=== PATIENT | male | born 1985 | race Caucasian/White ===

== ENCOUNTER 2022-12-07 08:28 | Emergency (ER) | payer OTHER ==
[2022-12-07 08:44] VITALS: TEMP 97.7
[2022-12-07 09:17] LABS: Appearance Clear (Clear); Bacteria None Seen /HPF (None Seen); Bilirubin Negative (Negative); Blood Negative (Negative); Epithelial Cells None Seen /HPF (None Seen); Glucose, Urine Negative (Negative); Hyaline Casts NONE SEEN /LPF (0-2); Ketones Negative (Negative); Leukocyte Esterase Negative (Negative); Nitrite Negative (Negative); Protein,Urine Dip Negative (Negative); RBC 0-2 /HPF (0-5); Urobilinogen 0.2 mg/dL (0.2); WBC 0-2 /HPF (0-5)
[2022-12-07 09:20] LABS: ADD URINE CULTURE? NO (NO)
--- NOTE | 2022-12-07 09:48 | ERPHSYRPT ---
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 Physician History: 37 yo WM w hematuria/L flank pain/epigastric pain x 1 hour. Pain is 7/10, sharp, and nothing makes it better or worse. He has had nausea but denies dysuria/vomiting/fever/diarrhea/melena/hematochezia/chest pain/dyspnea. Pt has a h/o kidney stones/smokes less than 1ppd/drinks 2 beers a day. Timing/Duration: other (1 hour) Quality: sharpness Abdominal Pain Onset Location: epigastric, flank (L flank) Pain Radiation: no radiation Severity of Pain-Max: moderate Severity of Pain-Current: moderate Modifying Factors: Improves With: nothing Associated Symptoms: back, nausea Allergies/Adverse Reactions: Penicillins Allergy (Verified 12/07/22 08:42) Hx Tetanus, Diphtheria Vaccination/Date Given: (unk) Hx Influenza Vaccination/Date Given: No Hx Pneumococcal Vaccination/Date Given: No Immunizations Up to Date: No Travel Risk - International Travel Have you traveled outside of the country in past 3 weeks: No - Coronavirus Screening Are you exhibiting any of the following symptoms?: No Close contact with a COVID-19 positive Pt in past 14-21 Days: No - Vaccine Status Have you recieved a Covid-19 vaccination: No - Review of Systems Constitutional: No Symptoms Eyes: No Symptoms Ears, Nose, & Throat: No Symptoms Respiratory: No Symptoms, Cough Cardiac: No Symptoms Abdominal/Gastrointestinal: No Symptoms, Abdominal Pain, Nausea Genitourinary Symptoms: No Symptoms, Hematuria, Flank Pain Musculoskeletal: No Symptoms Skin: No Symptoms Neurological: No Symptoms Psychological: No Symptoms Endocrine: No Symptoms Hematologic/Lymphatic: No Symptoms Immunological/Allergic: No Symptoms - Past Medical History Pertinent Past Medical History: Yes Cardiac History: Hypertension - Past Surgical History Past Surgical History: Yes - Social History Smoking Status: Current every day smoker Drug Use: marijuana Patient Lives Alone: No - Nursing Vital Signs Nursing Vital Signs: Initial Vital Signs Temperature 97.7 F 12/07/22 08:33 Pulse Rate 75 12/07/22 08:33 Respiratory Rate 16 12/07/22 08:33 Blood Pressure 146/93 12/07/22 08:33 O2 Sat by Pulse Oximetry 98 12/07/22 08:33 Pain Scale Pain Intensity 5 Hypertensive - Physical Exam General Appearance: no apparent distress Eye Exam: PERRL/EOMI, eyes nml inspection Ears, Nose, Throat Exam: normal ENT inspection, TMs normal, pharynx normal, moist mucous membranes Neck Exam: normal inspection, non-tender, supple, full range of motion, No meningismus, No mass, No Brudzinski, No Kernig's Respiratory Exam: normal breath sounds, lungs clear, airway intact, No respiratory distress Cardiovascular Exam: regular rate/rhythm, normal heart sounds, normal peripheral pulses, capillary refill <2 sec, No murmur Gastrointestinal/Abdomen Exam: soft, normal bowel sounds, tenderness (Moderate epigastric TTP wo guarding or rebound), No distention, No guarding Back Exam: normal inspection, normal range of motion, No CVA tenderness, No vertebral tenderness Extremity Exam: normal inspection, normal range of motion Neurologic Exam: alert, oriented x 3, cooperative, 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, normal mood/affect, nml cerebellar function, nml station & gait, sensation nml, No motor deficits, No sensory deficit Skin Exam: normal color, warm, dry, No rash Lymphatic Exam: No adenopathy SpO2 Interpretation: normal SpO2: 98 O2 Delivery: Room Air - Course Nursing assessment & vital signs reviewed: Yes - CT Exams Abdomen/Pelvis CT Interpretation: Tele-radiologist Report (Diffuse bladder wall thickening/cystitis) Ordered Tests: Active Orders 24 hr Category Date Time Status ABDOMEN AND PELVIS W/0 CONTRAS [CT] Stat Exams 12/07/22 08:37 Completed AMYLASE Stat Lab 12/07/22 09:43 Completed CBC W DIFF Stat Lab 12/07/22 09:43 Completed CMP Stat Lab 12/07/22 09:43 Completed LIPASE Stat Lab 12/07/22 09:43 Completed PROTIME WITH INR Stat Lab 12/07/22 09:43 Completed PTT Stat Lab 12/07/22 09:43 Completed TROPONIN Q4H Lab 12/07/22 09:43 Completed TROPONIN Q4H Lab 12/07/22 13:00 Ordered TROPONIN Q4H Lab 12/07/22 17:00 Ordered UA W/RFX UR CULTURE Stat Lab 12/07/22 09:07 Completed Medication Summary Discontinued Medications Generic Name Dose Route Start Last Admin Trade Name Lashaun PRN Reason Stop Dose Admin Ketorolac Tromethamine 30 mg 12/07/22 10:39 12/07/22 10:44 Ketorolac Tromethamine 30 Mg/Ml Inj IM 12/07/22 10:40 30 mg STAT ONE Administration Ketorolac Tromethamine Confirm 12/07/22 10:43 Ketorolac Tromethamine 30 Mg/Ml Inj Administered 12/07/22 10:44 Dose 30 mg .ROUTE .STNavarik-MED ONE Lab/Rad Data: Laboratory Result Diagrams 12/07/22 09:43 12/07/22 09:43 Laboratory Results 12/07/22 12/07/22 12/07/22 Range/Units 09:43 09:43 09:43 WBC (4.0-10.5) x10^3/uL RBC (4.1-5.6) x10^6/uL Hgb (12.5-18.0) g/dL Hct (42-50) % MCV (78-100) fL MCH (26-32) pg MCHC (32-36) g/dL RDW (11.5-14.0) % Plt Count (150-450) x10^3/uL MPV (7.5-11.0) fL Gran % (36.0-66.0) % Immature Gran % (Auto) (0.00-0.4) % Nucleat RBC Rel Count (0.00-0.1) % Eos # (Auto) (0-0.5) x10^3/uL Immature Gran # (Auto) (0.00-0.03) x10^3u/L Absolute Lymphs (auto) (1.0-4.6) x10^3/uL Absolute Monos (auto) (0.0-1.3) x10^3/uL Absolute Nucleated RBC (0.00-0.01) x10^3u/L Lymphocytes % (24.0-44.0) % Monocytes % (0.0-12.0) % Eosinophils % (0.00-5.0) % Basophils % (0.0-0.4) % Absolute Granulocytes (1.4-6.9) x10^3/uL Basophils # (0-0.4) x10^3/uL PT 10.0 (9.4-12.5) SECONDS INR 0.91 (0.8-3.0) APTT 26.4 (25.1-36.5) SECONDS Sodium 139 (137-145) mmol/L Potassium 4.0 (3.5-5.1) mmol/L Chloride 105 (98-107) mmol/L Carbon Dioxide 23 (22-30) mmol/L Anion Gap 14.4 (5-15) MEQ/L BUN 18 (9-20) mg/dL Creatinine 0.57 L (0.66-1.25) mg/dL Estimated GFR > 60.0 ML/MIN Glucose 89 (74-106) mg/dL Calcium 8.7 (8.4-10.2) mg/dL Total Bilirubin 0.30 (0.2-1.3) mg/dL AST 25 (17-59) U/L ALT 40 (0-50) U/L Alkaline Phosphatase 57 (38-126) U/L Troponin I < 0.012 (0.000-0.034) ng/mL Serum Total Protein 6.9 (6.3-8.2) g/dL Albumin 4.2 (3.5-5.0) g/dL Amylase 58 (30-110) U/L Lipase 59 (23-300) U/L Urine Color (Yellow) Urine Appearance (Clear) Urine pH (4.6-8.0) Ur Specific [place] (1.005-1.030) Urine Protein (Negative) Urine Glucose (UA) (Negative) mg/dL Urine Ketones (Negative) Urine Blood (Negative) Urine Nitrite (Negative) Urine Bilirubin (Negative) Urine Urobilinogen (0.2) mg/dL Ur Leukocyte Esterase (Negative) U Hyaline Cast (Auto) (0-2) /LPF Urine Microscopic RBC (0-5) /HPF Urine Microscopic WBC (0-5) /HPF Ur Epithelial Cells (None Seen) /HPF Urine Bacteria (None Seen) /HPF Urine Culture Reflexed (NO) 12/07/22 12/07/22 Range/Units 09:43 09:07 WBC 9.5 (4.0-10.5) x10^3/uL RBC 4.91 (4.1-5.6) x10^6/uL Hgb 15.4 (12.5-18.0) g/dL Hct 46.7 (42-50) % MCV 95.1 (78-100) fL MCH 31.4 (26-32) pg MCHC 33.0 (32-36) g/dL RDW 13.0 (11.5-14.0) % Plt Count 188 (150-450) x10^3/uL MPV 11.1 H (7.5-11.0) fL Gran % 60.5 (36.0-66.0) % Immature Gran % (Auto) 0.7 H (0.00-0.4) % Nucleat RBC Rel Count 0.0 (0.00-0.1) % Eos # (Auto) 0.24 (0-0.5) x10^3/uL Immature Gran # (Auto) 0.07 H (0.00-0.03) x10^3u/L Absolute Lymphs (auto) 2.51 (1.0-4.6) x10^3/uL Absolute Monos (auto) 0.87 (0.0-1.3) x10^3/uL Absolute Nucleated RBC 0.00 (0.00-0.01) x10^3u/L Lymphocytes % 26.4 (24.0-44.0) % Monocytes % 9.1 (0.0-12.0) % Eosinophils % 2.5 (0.00-5.0) % Basophils % 0.8 (0.0-0.4) % Absolute Granulocytes 5.74 (1.4-6.9) x10^3/uL Basophils # 0.08 (0-0.4) x10^3/uL PT (9.4-12.5) SECONDS INR (0.8-3.0) APTT (25.1-36.5) SECONDS Sodium (137-145) mmol/L Potassium (3.5-5.1) mmol/L Chloride (98-107) mmol/L Carbon Dioxide (22-30) mmol/L Anion Gap (5-15) MEQ/L BUN (9-20) mg/dL Creatinine (0.66-1.25) mg/dL Estimated GFR ML/MIN Glucose (74-106) mg/dL Calcium (8.4-10.2) mg/dL Total Bilirubin (0.2-1.3) mg/dL AST (17-59) U/L ALT (0-50) U/L Alkaline Phosphatase (38-126) U/L Troponin I (0.000-0.034) ng/mL Serum Total Protein (6.3-8.2) g/dL Albumin (3.5-5.0) g/dL Amylase (30-110) U/L Lipase (23-300) U/L Urine Color Yellow (Yellow) Urine Appearance Clear (Clear) Urine pH 6.0 (4.6-8.0) Ur Specific [place] 1.020 (1.005-1.030) Urine Protein Negative (Negative) Urine Glucose (UA) Negative (Negative) mg/dL Urine Ketones Negative (Negative) Urine Blood Negative (Negative) Urine Nitrite Negative (Negative) Urine Bilirubin Negative (Negative) Urine Urobilinogen 0.2 (0.2) mg/dL Ur Leukocyte Esterase Negative (Negative) U Hyaline Cast (Auto) NONE SEEN (0-2) /LPF Urine Microscopic RBC 0-2 (0-5) /HPF Urine Microscopic WBC 0-2 (0-5) /HPF Ur Epithelial Cells None Seen (None Seen) /HPF Urine Bacteria None Seen (None Seen) /HPF Urine Culture Reflexed NO (NO) - Progress Progress Note: 12/07/22 11:30 Nursing note and vital signs reviewed No food or housing insecurities noted Pt refused pain meds during entire stay except before discharge All lab results reviewed and shared w pt CT results reviewed and shared w pt 30mg IM Toradol before discharge No evidence of ureterolithiasis or surgical abdomen during stay Bactrim DS BID for 5 days Pt requested work excuse which was granted Counseled pt/family regarding: lab results, diagnosis, need for follow-up, rad results Medical Desision Making - Diagnostic Testing Radiological Interpretation: Reviewed by , Teleradiologist Report - Risk of complications The pt has a mod risk of morbidity or mortality based on: Need for prescription drug management - Departure Departure Disposition: Home Clinical Impression: Cystitis Condition: Stable Critical Care Time: No Referrals: DRAKE MÁRQUEZ NP [Primary Care Provider] - Follow up/PCP as directed Instructions: Blood in the urine (hematuria) in adults, Acute Cystitis (DC) Additional Instructions: Start Bactrim twice a day for 5 days Fluids Follow up with your family MD on Friday Return to ER for increasing pain or temperature greater than 100.5 Forms: Work/School Release Form Prescriptions: Smz/Tmp Ds Tablet [Bactrim Ds Tablet] 1 tab PO Q12H #10 tablet
[2022-12-07 09:50] LABS: Absolute Neutrophil Ct (ANC) 5.74 x10^3/uL (1.4-6.9); BASOPHIL % 0.8 % (0.0-0.4); Basophil (Absolute #) 0.08 x10^3/uL (0-0.4); Eosinophil % 2.5 % (0.00-5.0); Eosinophil (Absolute #) 0.24 x10^3/uL (0-0.5); Hematocrit 46.7 % (42-50); Hemoglobin 15.4 g/dL (12.5-18.0); IMMATURE GRAN # 0.07 x10^3u/L (0.00-0.03); IMMATURE GRAN % 0.7 % (0.00-0.4); Lymphocyte (Absolute #) 2.51 x10^3/uL (1.0-4.6); Lymphocytes % 26.4 % (24.0-44.0); Mean Cell Volume 95.1 fL (78-100); Mean Corpuscular Hemoglobin 31.4 pg (26-32); Mean Platelet Volume 11.1 fL (7.5-11.0); Monocyte (Absolute #) 0.87 x10^3/uL (0.0-1.3); Monocytes % 9.1 % (0.0-12.0); Neutrophil % 60.5 % (36.0-66.0); Platelet Count 188 x10^3/uL (150-450); Red Blood Count 4.91 x10^6/uL (4.1-5.6); White Blood Count 9.5 x10^3/uL (4.0-10.5)
--- NOTE | 2022-12-07 09:57 | XRAY ---
CLINICAL HISTORY:Hematuria COMPARISON:None TECHNIQUE:CT of the abdomen and pelvis was performed with axial images as well as sagittal and coronal reconstruction images without intravenous contrast.CTDI: 23.5, DLP: 1502 FINDINGS: No obstructing calculus or hydronephrosis noted bilaterally. The kidneys appear normal in size. No cysts or masses. The ureters are normal with no stones. Urinary bladder showing diffuse wall thickening measuring up to 0.6 cm. No bladder stones. The liver is normal in size, morphology and position. The liver appears unremarkable with no intrahepatic or extrahepatic bile duct dilation. Gallbladder appears normal with no obvious stones wall thickening or pericholecystic inflammatory changes or fluid. Unremarkable appearing pancreas. No pancreatic mass or ductal dilatation is seen. Unremarkable appearing spleen. The adrenal glands are normal. No abdominal wall pathology is seen. The stomach is partially collapsed and appears grossly unremarkable.Unremarkable appearing duodenum. Small bowel and colon are non-distended with no abnormality .No free air and no ascites. No free intraperitoneal air is seen. Few small air-filled outpouchings noted in the sigmoid and descending colon representing diverticulosis, no significant adjacent fat stranding identified to suggest acute diverticulitis. Appendix is visualized and appears grossly unremarkable, no evidence of periappendiceal fat stranding. Rounded calcified/ossified focus measured 1.1x0.9 cm noted at anterosuperior margin of right acetabulum? Loose body Thickening also noted in the region of the greater trochanter ,could be sequela of previous trauma. The visualized lung bases appear unremarkable. IMPRESSION: Urinary bladder showing diffuse wall thickening measuring up to 0.6 cm,cystitis needs consideration. No obstructing calculus or hydronephrosis noted bilaterally. No other significant abnormality identified. Electronically Signed by: Marco A Kowalski MD. (12/07/2022 08:56:35 REPLANTER)
[2022-12-07 10:03] LABS: ALBUMIN 4.2 g/dL (3.5-5.0); ALKALINE PHOSPHATASE 57 U/L (38-126); AMYLASE 58 U/L (30-110); ANION GAP 14.4 MEQ/L (5-15); BLOOD UREA NITROGEN 18 mg/dL (9-20); CHLORIDE 105 mmol/L (98-107); Calcium 8.7 mg/dL (8.4-10.2); Carbon Dioxide 23 mmol/L (22-30); Creatinine 1 0.57 mg/dL (0.66-1.25); EST GLOMERULAR FILTRATION RATE > 60.0 ML/MIN; Glucose 89 mg/dL (74-106); LIPASE 59 U/L (23-300); SGOT/AST 25 U/L (17-59); SGPT/ALT 40 U/L (0-50); SODIUM 139 mmol/L (137-145); Total Protein 6.9 g/dL (6.3-8.2)
[2022-12-07 10:05] LABS: INR 0.91 (0.8-3.0); PTT 26.4 SECONDS (25.1-36.5)
[2022-12-07] MEDS ORDERED: TORAdol 30 mg Injection IM ONE (10:39)
[2022-12-07] MEDS ORDERED: TORAdol 30 mg Injection ONE (10:43)
[2022-12-07 10:57] VITALS: BP 138/85; PULSE 72; RESP 18
[2022-12-07 11:35] VITALS: O2SAT 98
== END 2022-12-07 10:52 | disposition home or self-care (01) ==
LOC: ED 08:28
DX: N30.91 Cystitis, unspecified with hematuria (principal); R10.13 Epigastric pain; R11.0 Nausea; I10 Essential (primary) hypertension; Z28.310 Unvaccinated for COVID-19; Z72.0 Tobacco use
CPT/HCPCS: 36415; 74176; 80053; 81001; 82150; 83690; 84484; 85025; 85610; 85730; 96372; 99283; J1885

== ENCOUNTER 2023-03-17 08:43 | Emergency (ER) | payer SELFPAY ==
[2023-03-17 09:05] VITALS: TEMP 97.9; O2SAT 96
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
[2023-03-17 09:52] LABS: INFLUENZA A NEGATIVE (NEGATIVE); INFLUENZA B NEGATIVE (NEGATIVE); RESPIRATORY SYNCTIAL VIRUS NEGATIVE (NEGATIVE)
[2023-03-17 09:55] LABS: SARS-CoV-2 Xpert Express POSITIVE (NEGATIVE)
[2023-03-17 10:11] VITALS: BP 143/80; PULSE 73; RESP 10
== END 2023-03-17 10:12 | disposition home or self-care (01) ==
LOC: ED 08:43
DX: U07.1 COVID-19 (principal); M25.50 Pain in unspecified joint; R11.0 Nausea; R19.7 Diarrhea, unspecified; R10.84 Generalized abdominal pain; I10 Essential (primary) hypertension; Z28.310 Unvaccinated for COVID-19; Z72.0 Tobacco use
CPT/HCPCS: 0241U; 87651; 99282

== ENCOUNTER 2023-04-11 12:46 | Emergency (ER) | payer OTHER ==
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
[2023-04-11 13:12] VITALS: BP 164/92; PULSE 92; RESP 22; TEMP 98; O2SAT 98
[2023-04-11] MEDS ORDERED: Adacel Vial IM ONE ×2 (13:44→13:47)
== END 2023-04-11 14:03 | disposition home or self-care (01) ==
LOC: ED 12:46
DX: T25.222A Burn of second degree of left foot, initial encounter (principal); X11.1XXA Contact with running hot water, initial encounter; Y93.H9 Activity, other involving exterior property and land maintenance, building and construction; I10 Essential (primary) hypertension; Z28.310 Unvaccinated for COVID-19; Z72.0 Tobacco use; Z23 Encounter for immunization
CPT/HCPCS: 90471; 90715; 99282

== ENCOUNTER 2023-12-16 08:02 | Emergency (ER) | payer MEDICAID, OTHER ==
[2023-12-16 08:13] VITALS: RESP 18; TEMP 97.1
[2023-12-16] MEDS ORDERED: DECADRON 10MG INJ. ONE (08:39)
[2023-12-16] MEDS ORDERED: TORAdol 30 mg Injection ONE ×2 (08:39→08:41)
--- NOTE | 2023-12-16 08:39 | ERPHSYRPT ---
- History of Present Illness Time Seen by Provider: 12/16/23 08:25 Source: patient Exam Limitations: no limitations Patient Subjective Stated Complaint: Pt states "I think I messed up my lower back. I was moving stuff and now my lower back hurts." Triage Nursing Assessment: Pt presented alert and oriented X 3, skin wpd. Pt ambulates with an upright steady gait, able to speak in clear full sentences. PT resting comfortably on the bed. Physician History: Patient was moving furniture yesterday. This morning he awoke with localized back soreness. No radiation. No change in bowel bladder function. No saddle anesthesia. No fever no recent back procedure. Patient is ambulatory. Symptoms are mild to moderate in intensity. Pain worse with movement. Pain improved with rest. No sciatica symptomology. No extremity numbness tingling or weakness. Patient otherwise feels well. He voices no other complaints concerns at this time. Portions of this note were created with voice recognition technology. There may be grammatical, spelling, punctuation or sound alike errors Timing/Duration: today Method of Injury: lifting Quality: aching Back Pain Location: lumbar spine Severity of Pain-Max: moderate Severity of Pain-Current: mild Modifying Factors: Improves With: movement (Movement and palpation reproduce pain. Pain is at the bilateral lumbar paraspinals. No midline tenderness) Associated Symptoms: denies symptoms Previous symptoms: no prior history Allergies/Adverse Reactions: Penicillins Allergy (Verified 04/11/23 13:01) Hx Tetanus, Diphtheria Vaccination/Date Given: Yes Hx Influenza Vaccination/Date Given: No Hx Pneumococcal Vaccination/Date Given: No Immunizations Up to Date: No Travel Risk - International Travel Have you traveled outside of the country in past 3 weeks: No - Emerging Infectious Disease Are you exhibiting symptoms associated with any current EIDs: No - Review of Systems Constitutional: No Symptoms, No Fever, No Chills Eyes: No Symptoms Ears, Nose, & Throat: No Symptoms Respiratory: No Symptoms, No Cough, No Dyspnea Cardiac: No Symptoms, No Chest Pain, No Edema, No Syncope Abdominal/Gastrointestinal: No Symptoms, No Abdominal Pain, No Nausea, No Vomiting, No Diarrhea Genitourinary Symptoms: No Symptoms, No Dysuria Musculoskeletal: No Symptoms, No Back Pain, No Neck Pain Skin: No Symptoms, No Rash Neurological: No Symptoms, No Dizziness, No Focal Weakness, No Sensory Changes Psychological: No Symptoms Endocrine: No Symptoms Hematologic/Lymphatic: No Symptoms Immunological/Allergic: No Symptoms All Other Systems: Reviewed and Negative - Past Medical History Pertinent Past Medical History: Yes Cardiac History: Hypertension - Past Surgical History Past Surgical History: Yes Other Surgical History: right leg ([facility]) - Social History Smoking Status: Current every day smoker How long have you smoked: 18 years Exposure to second hand smoke: Yes Drug Use: marijuana Patient Lives Alone: No (daughter) - Social Determinants of Health Do you worry about a steady place to live?: No Do you have any problems with any of the following?: No known problems In the past 12 months,have you had to go without utilities?: No Transportation Issues: No Has anyone in your support network made you feel unsafe?: No Have you or anyone in your house had to go without enough: No - Nursing Vital Signs Nursing Vital Signs: Initial Vital Signs Temperature 97.1 F 12/16/23 08:09 Pulse Rate 69 12/16/23 08:09 Respiratory Rate 18 12/16/23 08:09 Blood Pressure 151/94 12/16/23 08:09 O2 Sat by Pulse Oximetry 99 12/16/23 08:09 Pain Scale Pain Intensity [Lower Back] 6 Pain Intensity 6 - Physical Exam General Appearance: no apparent distress, alert Eye Exam: PERRL/EOMI, eyes nml inspection Neck Exam: normal inspection, full range of motion, No meningismus, No midline tenderness Respiratory Exam: normal breath sounds, lungs clear, airway intact, No respiratory distress Cardiovascular Exam: regular rate/rhythm, normal heart sounds Gastrointestinal Exam: soft, No tenderness, No mass Extremity Exam: normal inspection, normal range of motion, No calf tenderness, No pedal edema Neurologic Exam: alert, oriented x 3, cooperative, patient service technician pst II-XII nml as tested, normal mood/affect, sensation nml, No motor deficits Skin Exam: normal color, warm, dry, No rash SpO2 Interpretation: normal SpO2: 99 O2 Delivery: Room Air - Course Nursing assessment & vital signs reviewed: Yes Ordered Tests: Medication Summary Discontinued Medications Generic Name Dose Route Start Last Admin Trade Name Freq PRN Reason Stop Dose Admin Dexamethasone Sodium Phosphate 10 mg 12/16/23 08:37 12/16/23 08:40 Dexamethasone Sod Phosphate 10 Mg/Ml IM 12/16/23 08:38 10 mg STAT ONE Administration Dexamethasone Sodium Phosphate Confirm 12/16/23 08:39 Dexamethasone Sod Phosphate 10 Mg/Ml Administered 12/16/23 08:40 Dose 10 mg .ROUTE .STK-MED ONE Ketorolac Tromethamine 60 mg 12/16/23 08:36 12/16/23 08:40 Ketorolac Tromethamine 30 Mg/Ml Inj IM 12/16/23 08:37 60 mg STAT ONE Administration Ketorolac Tromethamine Confirm 12/16/23 08:39 Ketorolac Tromethamine 30 Mg/Ml Inj Administered 12/16/23 08:40 Dose 30 mg .ROUTE .STK-MED ONE Ketorolac Tromethamine Confirm 12/16/23 08:41 Ketorolac Tromethamine 30 Mg/Ml Inj Administered 12/16/23 08:42 Dose 30 mg .ROUTE .STK-MED ONE - Progress Progress: improved Progress Note: 38-year-old male presents to emergency department for evaluation of low back pain. Patient was lifting furniture yesterday. Patient felt well at the time but this morning awoke with a sore back. Soreness is localized. No associated symptomology. Patient requesting a work note. Work note provided. Patient will receive 3 days off. A prescription for Toradol for the patient's pharmacy. Patient received 60 mg IM Toradol in our ED. 10 mg IM Decadron administered as well. Patient understands that he will require some rest and activities as tolerated thereafter. Patient agrees to follow-up with his primary care doctor within 48 hours for reevaluation. Portions of this note were created with voice recognition technology. There may be grammatical, spelling, punctuation or sound alike errors Complexity problem addressed is moderate acute complicated. No critical care time. Complex data reviewed analyzes none. No specialized testing ordered. Diagnosis made based on history and physical exam. Risk of complication and the risk of morbidity/mortality patient management is moderate. A prescription for Toradol for its patient's pharmacy. Vital stable. Time spent to discharge patient approximately 10 minutes. Plan of care established for shared decision making. No social determinants of health presents impede follow-up. Portions of this note were created with voice recognition technology. There may be grammatical, spelling, punctuation or sound alike errors 12/16/23 08:49 Counseled pt/family regarding: diagnosis, need for follow-up - Departure Departure Disposition: Home Clinical Impression: Lumbosacral strain Condition: Stable Critical Care Time: No Referrals: STEW CASTLE [Primary Care Provider] - Follow up/PCP as directed Additional Instructions: Discharge/Care Plan GEORGINA BANEGAS was seen on 12/16/23 in the Emergency Room. The patient was counseled regarding Diagnosis,Lab results, Imaging studies, need for follow up and when to return to the Emergency Room. Prescriptions given: Discharge Note I have spoken with the patient and/or caregivers. I have explained the patient's condition, diagnosis and treatment plan based on the information available to me at this time. I have answered the patient's and/or caregiver's questions and addressed any concerns. The patient and/or caregivers have as good understanding of the patient's diagnosis, condition and treatment plan as can be expected at this point. The vital signs have been stable. The patient's condition is stable and appropriate for discharge from the emergency department. The patient will pursue further outpatient evaluation with the primary care physician or other designated or consulting physician as outlined in the discharge instructions. The patient and/or caregivers are agreeable to this plan of care and follow-up instructions have been explained in detail. The patient and/or caregivers have received these instruction. The patient/and or caregivers are aware that any significant change in condition or worsening of symptoms should prompt an immediate return to this or the closest emergency department or call 911. Forms: Work/School Release Form Prescriptions: Ketorolac Trometh 10 mg Tab [TORAdol 10 MG TABLET] 10 mg PO TID 5 Days #15 tablet
[2023-12-16] MEDS: TORAdol 30 mg Injection IM ONE (08:40)
[2023-12-16] MEDS: DECADRON 10MG INJ. IM ONE (08:40)
[2023-12-16 08:50] VITALS: BP 123/91; PULSE 58
[2023-12-16 08:51] VITALS: O2SAT 99
== END 2023-12-16 08:52 | disposition home or self-care (01) ==
LOC: ED 08:02
DX: S39.012A Strain of muscle, fascia and tendon of lower back, initial encounter (principal); X50.0XXA Overexertion from strenuous movement or load, initial encounter; I10 Essential (primary) hypertension; Z79.899 Other long term (current) drug therapy; Z72.0 Tobacco use
CPT/HCPCS: 96372; 99283; J1100; J1885